=== PATIENT | female | born 1965 | race Caucasian/White ===

== ENCOUNTER 2018-11-24 16:28 | Emergency (ER) | payer OTHER ==
[2018-11-24] MEDS ORDERED: ACETAMINOPHEN 325 MG TABLET (FP) PO ONE (16:51)
--- NOTE | 2018-11-24 16:51 | PDOC ---
History of Present Illness - General Chief Complaint: Injury Stated Complaint: FALL/INJURY LFT HAND Time Seen by Provider: 11/24/18 16:35 - History of Present Illness Initial Comments: 53yo F with PMH of osteoporosis and COPD presenting after a fall. The patient is complaining of left wrist pain. She was walking along on some uneven pavement when she tripped and tumbled. She remembers impact to her knee and left arm and does not think she hit her head. No loss of consciousness, nausea, or vomiting. No seizure history. She has not taken anything for her pain. Patient does not have an orthopedist. She is from [facility] and is visiting family nearby. Patient states she has had some 'ligament problems' in the same extremity since this past winter. No fevers, chills, chest pain, or shortness of breath. Past History - Past Medical History Allergies/Adverse Reactions: Allergies Allergy/AdvReac Type Severity Reaction Status Date / Time No Known Allergies Allergy Verified 11/24/18 16:34 Home Medications: Ambulatory Orders Ibuprofen [Motrin -] 600 mg PO Q6H PRN #30 tablet 11/24/18 Multivitamin [Multiple Vitamins] 1 each PO DAILY 11/24/18 Oxycodone HCl/Acetaminophen [Percocet 5-325 mg Tablet] 1 tab PO Q6H PRN #12 tablet MDD 4 tabs 11/24/18 - Suicide/Smoking/Psychosocial Hx Smoking History: Never smoked Review of Systems - Review of Systems Comments:: Constitutional: no fever, no chills HEENT: no throat pain, no dysphagia Cardiovascular: no chest pain, no palpitations Respiratory: no cough, no shortness of breath Gastrointestinal: no abdominal pain, no nausea Genitourinary: no dysuria, no frequency Musculoskeletal: +Left arm pain, no right arm pain Skin: no rash, no itching Neurologic: no headache, no weakness *Physical Exam - Vital Signs Last Vital Signs Temp Pulse Resp BP Pulse Ox 100 H 22 H 158/74 98 11/24/18 16:34 11/24/18 16:34 11/24/18 16:34 11/24/18 16:34 - Physical Exam Comments: General: Awake, alert, and fully oriented, left arm kept close to her trunk Head: No signs of trauma Eyes: EOMI, sclera anicteric ENT: Moist mucus membranes Neck: Normal ROM, supple Lungs: Lungs clear, Normal breath sounds Cardio: Regular rhythm, S1 and S2 present Abdomen: Soft, nontender RUE: no abnormalities LUE: full range of motion in shoulder and elbow, deformity present on distal radius, tender to palpation over distal radius, patient moving fingers without pain, neurovascularly intact SKIN: Warm, Dry, normal turgor Neurologic: Cranial nerves II through XII grossly intact. Normal speech Medical Decision Making - Medical Decision Making 53yo F with PMH of osteoporosis and COPD presenting after a fall. DDX including but not limited to fracture, break, contusion, compartment syndrome, carpal tunnel Radiographs of the left wrist/hand, forearm, and elbow Percocet 11/24/18 17:[address] Cleary re: fracture. Patient can follow up with him tomorrow. He recommended longitudinal traction and volar splinting 11/24/18 18:26 Another 4mg morphine given for wrist pain Splint and sling placed 11/24/18 18:54 Patient discharged *DC/Admit/Observation/Transfer Diagnosis at time of Disposition: Fracture, radius, distal Qualifiers: Encounter type: initial encounter Fracture type: closed Fracture morphology: unspecified fracture morphology Laterality: left Qualified Code(s): S52.502A - Unspecified fracture of the lower end of left radius, initial encounter for closed fracture - Discharge Dispostion Disposition: HOME Condition at time of disposition: Stable - Prescriptions Prescriptions: Ibuprofen [Motrin -] 600 mg PO Q6H PRN #30 tablet PRN Reason: Pain Oxycodone HCl/Acetaminophen [Percocet 5-325 mg Tablet] 1 tab PO Q6H PRN #12 tablet MDD 4 tabs PRN Reason: Severe Pain - Referrals Referrals: Franko Cleary MD [Staff Physician] - - Patient Instructions Printed Discharge Instructions: How to Use a Sling, DI for Wrist Fracture Additional Instructions: You came into the emergency department after a fall for wrist pain. Xrays show you have a fracture of your wrist. We placed the wrist in a splint and your arm in a sling. We have referred you to an it training specialist. Follow-up with them for further evaluation and management. Call the number provided on Sunday morning and make an appointment for the same day. Your workup is not complete until you do so. Prescription for pain medicine sent to your pharmacy. You can also take 600mg of motrin every 6 hours for pain. Seek immediate medical attention if you experience severe pain or swelling, numbness or tingling or bluish skin color in your fingers, signs of infection including fever and chills, nausea and vomiting, lightheadedness, or, new or worsening symptoms. If you think you are having an emergency, call for emergency medical services or present to the emergency department right away. - Post Discharge Activity Forms/Work/School Notes: Back to Work
[2018-11-24] MEDS ORDERED: morphine CARPU-JECT 4 MG/1 ML DISP.SYRIN IVPUSH ONE (18:16)
[2018-11-24] MEDS ORDERED: morphine SULFATE 4 MG/ML VIAL ONE (18:23)
[2018-11-24 19:00] VITALS: BP 116/71; PULSE 74
--- NOTE | 2018-11-25 02:09 | PDOC ---
Documentation entered by Mitesh Sherman SCRIBE, acting as scribe for Risa Perales MD. Risa Perales MD: This documentation has been prepared by the Whit gonzáles Nirvannie, SCRIBE, under my direction and personally reviewed by me in its entirety. I confirm that the documentation accurately reflects all work, treatment, procedures, and medical decision making performed by me. Attending Attestation - Resident Resident Name: Erin Bedoya - ED Attending Attestation I have performed the following: I have examined & evaluated the patient, The case was reviewed & discussed with the resident, I agree w/resident's findings & plan - HPI HPI: 11/24/18 17:41 The patient is a 53 year old female, with no significant past medical history, who presents to the emergency department s/p mechanical slip and fall with pain to the left wrist. As per patient, she slip and fell on uneven pavement hurting her left wrist. She denies any LOC or head/neck trauma. Allergies: NKDA - Physicial Exam PE: 11/24/18 18:31 53 yo female has a mechanical fall and sustained a left wrist injury wnwd 53 yo female with L wrist pain head ncat neck no appreciable midline cervical tenderness lungs cta b/l cvs [id number] abd flat ext Left wrist swollen and sl deformity,cap refill < 2 seconds, sensation intact ,digits can be extended and flexed, she has no elbow pain and can fully extend her forearm, good radial and ulnar pulses skin warm and dry neuro axox3,ambulatory - Medical Decision Making 11/24/18 18:20 case discussed with ortho Dr Parker. Distal radial head fracture will be splinted and the pt will follow mike Parker agreed to see the pt tomorrow but she lives [facility] and will probably see an orthopedist near her home
== END 2018-11-24 18:59 | disposition home or self-care (01) ==
LOC: JER 16:28
PROC: 2W3DX1Z Immobilization of Left Lower Arm using Splint (ICD-10-PCS; principal; 2018-11-24)
PROC: 3E033NZ Introduction of Analgesics, Hypnotics, Sedatives into Peripheral Vein, Percutaneous Approach (ICD-10-PCS; 2018-11-24)
DX: S52.592A Other fractures of lower end of left radius, initial encounter for closed fracture (principal); W18.39XA Other fall on same level, initial encounter; Y93.89 Activity, other specified; Y92.480 Sidewalk as the place of occurrence of the external cause; Y99.8 Other external cause status
CPT/HCPCS: 29125; 73070-TC-LT-FY; 73090-TC-LT-FY; 73110-TC-LT-FY; 73130-TC-LT-FY; 96374; 99283-25